=== PATIENT | female | born 2000 | race Caucasian/White ===

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

== ENCOUNTER 2018-03-09 13:26 | Emergency (ER) | payer OTHER ==
[~2018-03-09] VITALS: Ht 172.7 cm; Wt 97.5 kg
[~2018-03-09 13:26] MED LIST changes: +BENZONATATE200 MG PO; +FLONASE 0.05%50 MCG NASAL; +PREDNISONE 10 M10 M1 PO
[2018-03-09] MEDS ORDERED: NEXPLANON68 MG IMPLANT (13:34)
[2018-03-09 13:39] LABS: URINE BILIRUBIN NEGATIVE (Negative); URINE BLOOD NEGATIVE (Negative); URINE CLARITY CLEAR; URINE COLOR YELLOW; URINE GLUCOSE-RANDOM NEGATIVE (Negative); URINE KETONES NEGATIVE (Negative); URINE LEUKOCYTES-REFLEX NEGATIVE (Negative); URINE NITRITE-REFLEX NEGATIVE (Negative); URINE PROTEIN NEGATIVE (Negative); URINE SPECIFIC GRAVITY 1.015 (1.005-1.030); URINE UROBILINOGEN 0.2 E.U./dl (0.2-1.0)
[2018-03-09] MEDS ORDERED: NAPROSYN500 MG PO (13:53)
[2018-03-09] MEDS ORDERED: ROBAXIN 750 MG750 M1 PO (13:53)
[2018-03-09 14:06] VITALS: BP 144/83
== END 2018-03-09 14:07 | disposition home or self-care (01) ==
LOC: M.ERS 13:26
PROVIDERS: Nurse Practitioner Family
DX: M54.41 Lumbago with sciatica, right side (principal); R20.0 Anesthesia of skin; R20.2 Paresthesia of skin; K21.9 Gastro-esophageal reflux disease without esophagitis; M32.9 Systemic lupus erythematosus, unspecified; F17.210 Nicotine dependence, cigarettes, uncomplicated; Z88.0 Allergy status to penicillin; Z91.018 Allergy to other foods; Z88.8 Allergy status to other drugs, medicaments and biological substances

== ENCOUNTER 2019-10-22 14:24 | Emergency (ER) | payer OTHER ==
[~2019-10-22] VITALS: Ht 172.7 cm; Wt 97.5 kg
[~2019-10-22 14:24] MED LIST changes: +NAPROSYN500 MG PO; +NEXPLANON68 MG IMPLANT; +ROBAXIN 750 MG750 M1 PO
[2019-10-22] MEDS ORDERED: SERTRALINE HCL50 MG PO (14:37)
[2019-10-22] MEDS ORDERED: KEFLEX500 M1 PO (16:16)
[2019-10-22 16:45] VITALS: BP 129/67
== END 2019-10-22 16:46 | disposition home or self-care (01) ==
LOC: M.ERS 14:24
DX: J02.9 Acute pharyngitis, unspecified (principal); Z20.828 Contact with and (suspected) exposure to other viral communicable diseases; K21.9 Gastro-esophageal reflux disease without esophagitis; M32.9 Systemic lupus erythematosus, unspecified; F17.210 Nicotine dependence, cigarettes, uncomplicated; Z88.0 Allergy status to penicillin; Z88.8 Allergy status to other drugs, medicaments and biological substances; Z91.018 Allergy to other foods

== ENCOUNTER → 2019-12-13 | Outpatient (CLI) | payer OTHER ==
[~2019-12-13] MED LIST changes: +KEFLEX500 M1 PO; +SERTRALINE HCL50 MG PO
== END ==
LOC: M.LAB 16:03
PROVIDERS: ATTEND Surgery
DX: Z01.812 Encounter for preprocedural laboratory examination (principal); Z20.828 Contact with and (suspected) exposure to other viral communicable diseases; K80.20 Calculus of gallbladder without cholecystitis without obstruction

== ENCOUNTER → 2019-12-19 | Day surgery (SDC) | payer OTHER ==
[~2019-12-19] MED LIST changes: +LORCET 5-325 M1 EACH PO
[2019-12-19 06:26] LABS: HEMATOCRIT 40.9 % (37.0-47.0); HEMOGLOBIN 14.3 gm/dL (12.0-15.0)
[2019-12-19 06:36] LABS: CALCIUM 8.7 mg/dL (8.5-10.1); CREATININE 0.8 mg/dL (0.6-1.3); POTASSIUM 3.9 mmol/L (3.5-5.1)
[2019-12-19 06:41] LABS: TOTAL BILIRUBIN 0.4 mg/dL (<0.1-1.0)
--- NOTE | 2019-12-22 10:19 | OP ---
[facility] [address] [place] [address] OPERATIVE REPORT Name: IVAN GRAY Room: [facility].#: [id number] Admission: 12/19/19 Attend Phys: Malvin Lazcano Discharge: Date of : 89 Report #: [id number] THIS REPORT FOR: //name// cc: Ling Hoover Ahmad W. DO ~ CC: Ling Lazcano DATE OF SERVICE: 12/19/2019 PREOPERATIVE DIAGNOSIS: Symptomatic cholelithiasis. POSTOPERATIVE DIAGNOSIS: Symptomatic cholelithiasis. OPERATION: Laparoscopic cholecystectomy. SURGEON: Malvin Lazcano MD ANESTHESIA: General. ESTIMATED BLOOD LOSS: Minimal. SPECIMEN: Gallbladder. DESCRIPTION OF PROCEDURE: After informed consent was obtained, the patient was brought to the operating room and placed supine. SCDs were placed and working, preoperative antibiotics were administered, general anesthesia was induced. The abdomen was prepped and draped in the usual sterile fashion. A 10 mm incision was made below the umbilicus. Fascia was incised and a trocar was placed. Pneumoperitoneum was established. Three right upper quadrant 5 mm ports were placed. Gallbladder was grasped at the fundus and retracted cephalad. Infundibulum was grasped and retracted laterally. I dissected out the cystic duct and cystic artery. Cystic duct and artery were clipped and ligated leaving 2 clips on the remaining duct and one on the remaining artery. The cystic plate was fully identified prior to clipping and cutting. The gallbladder was then taken off the liver bed with electrocautery. It was placed into an Endopouch and removed. The fascia was then closed with a radsln-ot-oljma 0 Vicryl. Skin was closed with 4-0 Monocryl. Incisions were sealed with Dermabond. COMPLICATIONS: None. DISPOSITION: The patient was taken to recovery in satisfactory condition. <ELECTRONICALLY SIGNED> By: Malvin Lazcano MD 12/22/19 1019 [id number] Lazcano MD /nt
--- NOTE | 2019-12-22 16:06 | PATH ---
[address] [address] PATHOLOGY RPT PROCEDURE Name: ELIGH GRAY Room: [facility].#: [id number] Admission: 12/19/19 Date of : 89 Discharge: Report #: [id number] Path Case #: [id number] [facility] Accession Number: [id number] . 01 Material submitted: . gallbladder - GALLBLADDER AND CONTENTS . 01 Clinical history: . CALCULOUS OF GALLBLADDER . 02 Diagnosis: Gallbladder and contents: - Chronic cholecystitis with benign sentinel lymph node. See comment. LBQ 12/21/2019 1639 Local . 02 Comment: No gallstones are identified in the submitted specimen. (POLI/db; 12/21/2019) . 02 Electronically signed: . Luis Alberto Han MD, Pathologist NPI- [id number] . 01 Gross description: . The specimen is received in formalin labeled "Leigh Gray, gallbladder and contents" and consists of an intact green gallbladder measuring 7.7 x 3.2 x 3.2 cm. The margin is inked black. Opening reveals a lumen filled with viscous green bile and no calculi. No calculi are identified within the container. The mucosa is green and velvety with a 0.5 cm polypoid cluster and an average wall thickness of 0.1 cm. No masses are identified. Adjacent the gallbladder neck is a possible 0.9 cm lymph node candidate. Medical Lead sections are submitted in A1. (SD; 12/20/2019) SYU/SYU 12/21/2019 1634 Local . 02 Pathologist provided ICD-10: K81.1 . 02 CPT . 389918 Specimen Comment: A courtesy copy of this report has been sent to [phone], [phone] Specimen Comment: [phone] Specimen Comment: Report sent to / DR AVILA Performed at: [address] [facility] [place] [address] [id number] MD Sam Flores MD Phone: [phone] [place] [address] PATHOLOGY RPT PROCEDURE Name: GRAYLEIGH Room: [facility] M.R.#: [id number] Admission: 12/19/19 Date of : [birth year] Discharge: Report #: [id number] Path Case #: [id number] Performed at: [address] [facility] [address] RADAH Allen [id number] MD Luis Alberto Han MD Phone: [phone]
== END | disposition home or self-care (01) ==
LOC: M.SUR
PROVIDERS: ATTEND Surgery
DX: K81.1 Chronic cholecystitis (principal); K21.9 Gastro-esophageal reflux disease without esophagitis; F32.9 Major depressive disorder, single episode, unspecified; F17.210 Nicotine dependence, cigarettes, uncomplicated; Z79.899 Other long term (current) drug therapy; Z72.89 Other problems related to lifestyle; Z98.890 Other specified postprocedural states; Z88.0 Allergy status to penicillin; Z88.1 Allergy status to other antibiotic agents; Z88.8 Allergy status to other drugs, medicaments and biological substances